=== PATIENT | female | born 2005 | race Hispanic/Latino ===

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

== ENCOUNTER 2025-02-21 17:01 | Emergency (ER) | payer OTHER ==
[2025-02-21] MEDS ORDERED: Acetaminophen 500 MG TAB ONE (17:55)
== END 2025-02-21 18:05 | disposition home or self-care (01) ==
LOC: ERS 17:01
DX: J11.1 Influenza due to unidentified influenza virus with other respiratory manifestations (principal)
CPT/HCPCS: 87081; 87428; 87430; 99283